=== PATIENT | female | born 1980 | race Caucasian/White ===

== ENCOUNTER 2017-05-27 21:40 | Emergency (ER) | payer SELFPAY ==
[~2017-05-27] VITALS: Ht 157.5 cm; Wt 61.7 kg
[2017-05-27 22:06] VITALS: BP 122/81; Ht 157.5 cm; Wt 61.7 kg
== END 2017-05-28 04:40 | disposition left against medical advice (07) ==
LOC: ED 21:40
DX: Z53.21 Procedure and treatment not carried out due to patient leaving prior to being seen by health care provider (principal)